=== PATIENT | male | born 2005 | race African-American/Black ===

== ENCOUNTER 2024-07-07 06:27 | Emergency (ER) | payer MEDICAID, OTHER ==
[~2024-07-07] VITALS: Ht 182.9 cm; Wt 72.6 kg
[2024-07-07 06:35] VITALS: BP 113/76; PULSE 50; RESP 14; TEMP 97.8; O2SAT 99
[2024-07-07] MEDS ORDERED: NAPR-746 PO (07:16)
== END 2024-07-07 07:24 | disposition home or self-care (01) ==
LOC: ER 06:27
DX: S29.011A Strain of muscle and tendon of front wall of thorax, initial encounter (principal); Z79.899 Other long term (current) drug therapy; X58.XXXA Exposure to other specified factors, initial encounter; Y93.89 Activity, other specified; Y92.89 Other specified places as the place of occurrence of the external cause; Y99.8 Other external cause status
CPT/HCPCS: 71046

== ENCOUNTER 2025-01-15 04:22 | Emergency (ER) | payer MEDICAID ==
[~2025-01-15] VITALS: Ht 185.4 cm; Wt 70.1 kg
[~2025-01-15 04:22] MED LIST: NAPR-746 PO
--- NOTE | 2025-01-15 04:57 | ED.PDOC ---
Eye-HPI HPI Comments C/C of sore throat x1 day with no relief after cough drops and pain medication. Pt states it feels scratchy, noted swollen tonsils. Denies difficulty breathing, difficulty swallowing, shortness of breath, chest pain, nausea, vomiting, recent travel, or ill known contacts Time Seen by MD: 04:45 Primary Care Provider: NONE Reviewed Notes: Nurses Notes, Medications, Allergies Allergies: Coded Allergies: NO KNOWN ALLERGIES (Unverified , 02/22/11) Home Meds Active Scripts Methylprednisolone (Medrol Dosepak) 4 Mg Bronson, 4 MG PO UD for 6 Days, #21 TAB UAD Prov:MANUEL RANGELK ACTU[employer]IAL SCIENCE PROFESSOR 01/15/25 Amoxicillin & Pot Clavulanate (AUGMENTIN TABLET) 875 Mg Tb, 875 MG PO BID for 10 Days, #20 TAB Prov:CLAIREBACILIO Du [employer]IAL SCIENCE PROFESSOR 01/15/25 Naproxen (Naproxen) 500 Mg Tab, 500 MG PO BID, #30 TAB Prov:JUMA WHITE 07/07/24 Information Source: Patient Past Medical History PAST MEDICAL HISTORY: Denies Surgical History: Denies all surgeries Family History Family History: Reviewed,noncontributory to illness Social History Lives In: Home Constitutional: reports: fever; denies: chills, diaphoresis, fatigue, malaise, sweats, weakness, others EENTM: reports: throat pain, throat swelling; denies: blurred vision, double vi juma, ear bleeding, ear discharge, ear drainage, ear pain, ear ringing, eye pain, eye redness, hearing loss, mouth pain, mouth swelling, nasal discharge, nose bleeding, nose congestion, nose pain, photophobia, tearing, voice changes, others Respiratory: reports: cough; denies: hemoptysis, orthopnea, SOB at rest, shortness of breath, SOB with excertion, stridor, wheezing, others Cardiovascular: denies: chest pain, dizzy spells, diaphoresis, Dyspnea on exertion, edema, irregular heart beat, left arm pain, lightheadedness, palpitations, PND, syncope, others Gastrointestinal: denies: abdomen distended, abdominal pain, blood streaked bowels, constipated, diarrhea, dysphagia, difficulty swallowing, hematemesis, melena, nausea, poor appetite, poor fluid intake, rectal bleeding, rectal pain, vomiting, others Genitourinary: denies: burning, dysuria, flank pain, frequency, hematuria, incontinence, penile discharge, penile sore, pain, testicle pain, testicle swelling, urgency, others Neurological: denies: dizziness, fainting, headache, left sided numbness, left sided weakness, numbness, paresthesia, pre-existing deficit, right sided numbness, right sided weakness, seizure, speech problems, tingling, tremors, weakness, others Musculoskeletal: denies: back pain, gout, joint pain, joint swelling, muscle pain, muscle stiffness, neck pain, others Integumetry: denies: bruises, change in color, change in hair/nails, dryness, laceration, lesions, lumps, rash, wounds, others Allergic/Immunocompromised: denies: Difficulty Healing, Frequent Infections, Hives, Itching, others Hematologic/Lymphatic: denies: anemia, blood clots, easy bleeding, easy bruising, swollen glands, others Endocrine: denies: excessive hunger, excessive sweating, excessive thirst, excessive urination, flushing, intolerance to cold, intolerance to heat, unexplained weight gain, unexplained weight loss, others Psychiatric: denies: anxiety, bipolar disorder, depression, hopeless, panic disorder, schizophrenia, sleepless, suicidal, others Physical Exam General Appearance: No Apparent Distress, Normal HEENT: Pharynx Normal, TMs Normal, Tonsillar Exudate (TONSILS GRADE 4 WITH EXUDATE NO NOTED OBVIOUS PERITONSILLAR ABSCESS. MODERATE AMOUNT ERYTHEMA) Neck: Full Range of Motion, Non-Tender Respiratory: Lungs Clear, No Respiratory Distress, Normal Breath Sounds Cardiovascular: No Edema, No JVD, No Murmur, No Gallop, Normal Peripheral Pulses, Regular Rate/Rhythm Breast Exam: Deferred Gastrointestinal: No Organomegaly, Non Tender, No Pulsatile Mass, Normal Bowel Sounds, Soft Genitalia: Deferred Pelvic: Deferred Rectal: Deferred Extremities: Normal capillary refill, Normal inspection, Normal range of motion, Non-tender, No pedal edema Musculoskeletal : Apperance: Normal Neurologic: Alert, deputy controller II-XII nml as Tested, No Motor Deficits, Normal Affect, Normal Mood, No Sensory Deficits Cerebellar Function: Normal Reflexes: Normal Skin: Dry, Normal Color, Warm Lymphatic: No Adenopathy Was a procedure done? Was a procedure done?: No EENT DIFF Eye: N/A Sore Throat: Peritonsillar Abscess, Peritonsillar Cellulitis, Streptococcal, Viral Pharyngitis, URI X-Ray, Labs, Meds, VS Vital Signs Date Time Temp Pulse Resp B/P (MAP) Pulse Ox O2 Delivery O2 Flow Rate FiO2 01/15/25 05:00 99.6 71 20 126/75 (92) 98 99.6 Current Medications Medications (Trade) Dose Ordered Sig/Edmar Route Start Time Stop Time Status Last Admin Ceftriaxone Sodium (Rocephin) 1,000 mg ONCE ONCE IM 01/15/25 05:00 01/15/25 05:01 DC 01/15/25 05:53 Dexamethasone Sodium Phosphate (Decadron Injection) 10 mg ONCE ONCE IM 01/15/25 05:00 01/15/25 05:01 DC 01/15/25 05:53 X-Ray, Labs, Meds, VS Comment Likely bacterial tonsils grade 4 erythemic with exudate. Patient given Rocephin 1 g IM and Decadron 10 mg IM reports improvement in pain requesting discharge at this time. Script trial of Augmentin twice daily times 10 days along with Medrol Dosepak. Advised to rest increase p.o. fluids with electrolytes. Eating cold popsicles and fluids to help with the pain and swelling. Follow up with your PCP in 2 days. Take medications as prescribed side effects discussed. ER return precautions given patient indicates understanding and agrees with discharge plan of care. Time of 1ST Reevaluation: 04:55 Reevaluation 1ST: Unchanged Time of 2ND Reevaluation: 05:15 Reevaluation 2ND: Improved Patient Education/Counseling: Diagnosis, Treatment, Prognosis, Need For Follow Up Family Education/Counseling: No Family Present Departure 1 Departure Time of Disposition: 05:15 Impression: Primary Impression: Exudative tonsillitis Disposition: 01 HOME / SELF CARE / HOMELESS Condition: Stable e-Prescriptions Methylprednisolone (Medrol Dosepak) 4 Mg Bronson 4 MG PO UD for 6 Days, #21 TAB UAD Prov: BACILIO RANGEL 01/15/25 Amoxicillin & Pot Clavulanate (AUGMENTIN TABLET) 875 Mg Tb 875 MG PO BID for 10 Days, #20 TAB Prov: BACILIO RANGEL 01/15/25 Discharged With: Self Critical Care Note Critical Care Time?: No Stability Stability form required: No CLAIREBACILIO ACTUARIAL SCIENCE PROFESSOR Jan 15, 2025 04:57
[2025-01-15] MEDS ORDERED: METH4PAK PO (05:00)
[2025-01-15] MEDS ORDERED: AUG875T PO (05:00)
[2025-01-15 05:53] VITALS: BP 119/74; PULSE 70; RESP 17; TEMP 98.5; O2SAT 97
[2025-01-15] MEDS: DexAMETHasone SOD PHOS 10MG/1ML VIAL INJ IM ONE (05:53)
[2025-01-15] MEDS: cefTRIAXone SOD 1,000 MG VL IM ONE (05:53)
== END 2025-01-15 06:05 | disposition home or self-care (01) ==
LOC: ER 04:22
DX: J03.90 Acute tonsillitis, unspecified (principal)
CPT/HCPCS: 96372; 99284; J0696; J1100

== ENCOUNTER 2025-01-24 04:50 | Emergency (ER) | payer MEDICAID ==
[~2025-01-24] VITALS: Ht 182.9 cm; Wt 71.5 kg
[~2025-01-24 04:50] MED LIST changes: +AUG875T PO
--- NOTE | 2025-01-24 05:10 | ED.PDOC ---
History of Present Illness HPI Comments 19-year-old male with no reported PMHx or PSHx presents with a chief complaint of rash to ears, arms, hands, chest, and backside. Patient states that onset of symptoms began yesterday morning, but has been worsening since onset. Patient denies any new lotions, foods, cologne, or animals. Patient reports that the rash began on his ears and was idiopathic. Chief Complaint: Rash Time Seen by MD: 05:00 Primary Care Provider: NONE Reviewed Notes: Medications, Allergies Allergies: Coded Allergies: NO KNOWN ALLERGIES (Unverified , 02/22/11) Home Meds Active Scripts Prednisone (Prednisone) 20 Mg Tab, 20 MG PO DAILY for 4 Days, #4 MG Start on 01/25/2025 Prov:SADIA ZAMORA MD 01/24/25 Diphenhydramine Hcl (Benadryl Allergy) 25 Mg Tab, 25 MG PO TIDPRN PRN for 5 Days, #15 TAB Prov:SADIA ZAMORA MD 01/24/25 Amoxicillin & Pot Clavulanate (AUGMENTIN TABLET) 875 Mg Tb, 875 MG PO BID for 10 Days, #20 TAB Prov:BACILIO RANGEL 01/15/25 Naproxen (Naproxen) 500 Mg Tab, 500 MG PO BID, #30 TAB Prov:JUMA WHITE 07/07/24 Discontinued Scripts Methylprednisolone (Medrol Dosepak) 4 Mg Bronson, 4 MG PO UD for 6 Days, #21 TAB UAD Prov:BACILIO RANGEL [facility] 01/15/25 Information Source: Patient Mode of Arrival: Ambulatory Severity: Moderate Timing: Days Duration: Since onset Prehospital treatment: Treatment ([facility]NADRYL) Vital Signs Vital Signs Date Time Temp Pulse Resp B/P (MAP) Pulse Ox O2 Delivery O2 Flow Rate FiO2 01/24/25 06:26 98.1 66 12 123/73 (90) 100 98.1 01/24/25 06:13 Room Air* 0 21 Physical Exam General: Awake, alert and oriented. No acute distress. Skin: Skin in warm, dry and intact. Appropriate color for ethnicity. HEENT: The head is normocephalic and atraumatic. Conjunctivae are clear without exudates or hemorrhage. Sclera is non-icteric. EOM are intact. No signs of nystagmus. Eyelids are normal in appearance without swelling or lesions. Oral mucosa is pink and moist Neck: The neck is supple with normal range of motion. No JVD. Cardiac: Heart rate and rhythm are normal. No murmurs, gallops, or rubs are auscultated. Respiratory: No signs of respiratory distress. Lung sounds are clear in all lobes bilaterally without rales, rhonchi, or wheezes. No stridor. No posterior pharyngeal erythema or edema. Abdominal: Abdomen is soft, non-tender without distention. Bowel sounds are present and normoactive in all four quadrants. Skin: Maculopapular rash over the upper extremities, face, erythema of the ears. Neurological: The patient is awake, alert and oriented to person, place, and time with normal speech. Speech is clear. There is no facial asymmetry. Psychiatric: Appropriate mood and affect. Good judgement and insight. Review of Systems: REVIEW OF SYSTEMS: No fever, no chills, or fatigue HEENT: No sore throat, no earache, no congestion, no neck pain. Cardiac: No chest pain. No palpitations. Lungs: No shortness of breath, no cough. GI: No nausea, no vomiting, no diarrhea, no constipation, no abdominal pain : No dysuria, frequency, or urgency. No hematuria. Musculoskeletal: No joint pain , no joint swelling, no extremity edema. Skin: Positive rash, positive itching. Neuro: No headache, no dizziness, no weakness Past Medical History PAST MEDICAL HISTORY: Denies Surgical History: Denies all surgeries Family History Family History: Reviewed,noncontributory to illness Social History Smoker: Non-Smoker Alcohol: Denies ETOH Use Drugs: Denies Drug Use Lives In: Home Was a procedure done? Was a procedure done?: No Differential Dx Considerations may include: Differential diagnoses considered include but are not limited to Anaphylaxis, Allergic reaction, rash, dermatitis, infection, cellulitis, autoimmune disorder, other X-Ray, Labs, Meds, VS Vital Signs Date Time Temp Pulse Resp B/P (MAP) Pulse Ox O2 Delivery O2 Flow Rate FiO2 01/24/25 06:26 98.1 66 12 123/73 (90) 100 98.1 01/24/25 06:13 16 97 Room Air* 0 21 01/24/25 04:50 98.1 66 12 123/73 (90) 100 98.1 Lab Test 01/24/25 05:45 Range/Units White Blood Count 6.1 4.4-10.8 10^3/uL Red Blood Count 5.13 4.5-5.90 10^6/uL Hemoglobin 15.2 13.5-17.5 g/dL Hematocrit 43.5 41.0-53.0 % Mean Corpuscular Volume 84.9 80.0-100.0 fL Mean Corpuscular Hemoglobin 29.7 28.0-32.0 pg Mean Corpuscular Hemoglobin Concent 34.9 32.0-36.0 g/dL Red Cell Distribution Width 13.3 11.8-14.3 % Platelet Count 258 140-450 10^3/uL Mean Platelet Volume 6.8 L 6.9-10.8 fL Neutrophils (%) (Auto) 42.8 37.0-80.0 % Lymphocytes (%) (Auto) 44.2 10.0-50.0 % Monocytes (%) (Auto) 7.0 0.0-12.0 % Eosinophils (%) (Auto) 5.7 0.0-7.0 % Basophils (%) (Auto) 0.3 0.0-2.0 % Neutrophils # (Auto) 2.6 1.6-8.6 10 ^3/uL Lymphocytes # (Auto) 2.7 0.4-5.4 10 ^3/uL Monocytes # (Auto) 0.4 0-1.3 10 ^3/uL Eosinophils # (Auto) 0.3 0-0.8 10 ^3/uL Basophils # (Auto) 0 0-0.2 10 ^3/uL Nucleated Red Blood Cells 0.7 % Sodium Level 139 136-145 mmol/L Potassium Level 4.0 3.5-5.1 mmol/L Chloride Level 103 98-107 mmol/L Carbon Dioxide Level 30 20-31 mmol/L Anion Gap 6 5-15 Blood Urea Nitrogen 16 9-23 mg/dL Creatinine 0.79 0.700-1.30 mg/dL Glomerular Filtration Rate Calc 130 >90 mL/min BUN/Creatinine Ratio 20.3 H 10.0-20.0 Serum Glucose 87 74-106 mg/dL Calcium Level 9.4 8.7-10.4 mg/dL Current Medications Medications (Trade) Dose Ordered Sig/Edmar Route Start Time Stop Time Status Last Admin Sodium Chloride 1,000 ml @ 1,000 mls/hr Q1H ONCE IV 01/24/25 05:15 01/24/25 06:14 DC 01/24/25 05:18 Dexamethasone Sodium Phosphate (Decadron Injection) 10 mg ONCE ONCE IV 01/24/25 05:30 01/24/25 05:31 DC 01/24/25 05:26 Diphenhydramine HCl (Benadryl Injection) 50 mg ONCE ONCE IV 01/24/25 05:30 01/24/25 05:31 DC 01/24/25 05:29 Famotidine (Pepcid Injection) 20 mg ONCE ONCE IV 01/24/25 05:30 01/24/25 05:31 DC 01/24/25 05:29 Time of 1ST Reevaluation: 05:30 Reevaluation 1ST: Unchanged Patient Education/Counseling: Need For Follow Up Family Education/Counseling: No Family Present Departure 1 Departure Time of Disposition: 05:22 Impression: Primary Impression: Rash Additional Impression: Allergic reaction Disposition: HOME / SELF CARE / HOMELESS Condition: Stable Additional Instructions: ED DISCHARGE INSTRUCTIONS Instructions: Please read all instructions provided in this packet carefully. Although you have been discharged from the Emergency Department, this does not mean that you have a "clean bill of health". No definitive diagnosis for your symptoms has been made today. It is possible that you are in the process of developing a serious illness. This is why you must return to the ED without fail if any new or worsening symptoms (especially if your symptoms include chest pain , trouble breathing, abdominal pain, fever, headache, confusion, trouble seeing, or trouble walking) It is also very important that you see a primary care doctor within the next 1-3 days to follow up. If you are unable to get an appointment, return to the ED for re-evaluation. Allergic Reaction: Care Instructions An allergic reaction is an excessive response from your immune system to a medicine, chemical, food, insect bite, or other substance. A reaction can range from mild to life-threatening. Some people have a mild rash, hives, and itching or stomach cramps. In severe reactions, swelling of your tongue and throat can close up your airway so that you cannot breathe. Follow-up care is a sanderson part of your treatment and safety. Be sure to make and go to all appointments, and call your doctor if you are having problems. It's also a good idea to know your test results and keep a list of the medicines you take. How can you care for yourself at home? If you know what caused your allergic reaction, be sure to avoid it. Your allergy may become more severe each time you have a reaction. Take an [id number] antihistamine, such as cetirizine (Zyrtec) or loratadine (Claritin), to treat mild symptoms. Read and follow directions on the label. Some antihistamines can make you feel sleepy. Do not give antihistamines to a child unless you have checked with your doctor first. Mild symptoms include sneezing or an itchy or runny nose; an itchy mouth; a few hives or mild itching; and mild nausea or stomach discomfort. Do not scratch hives or a rash. Put a cold, moist towel on them or take cool baths to relieve itching. Put ice packs on hives, swelling, or insect stings for 10 to 15 minutes at a time. Put a thin cloth between the ice pack and your skin. Do not take hot baths or showers. They will make the itching worse. Your doctor may prescribe an epinephrine medicine, such as an epinephrine shot or nasal spray, to carry with you in case you have a severe reaction. Learn how to give yourself the medicine and keep it with you at all times. Make sure it is not . Go to the emergency room every time you have a severe reaction, even if you have used your epinephrine medicine and are feeling better. Symptoms can come back after using the medicine. Wear medical alert jewelry that lists your allergies. You can buy this at most [employer]. When should you call for help? Use an epinephrine medicine, such as an epinephrine shot or nasal spray, if: You think you are having a severe allergic reaction. You have symptoms in more than one body area, such as mild nausea and an itchy mouth. After giving an epinephrine medicine, call 911, even if you feel better. Call 911 anytime you think you may need emergency care. For example, call if: You have symptoms of a severe allergic reaction. These may include: Sudden raised, red areas (hives) all over your body. Swelling of the throat, mouth, lips, or tongue. Trouble breathing. Passing out (losing consciousness). Or you may feel very lightheaded or suddenly feel weak, confused, or restless. Severe belly pain, nausea, vomiting, or diarrhea. Call your doctor now or seek immediate medical care if: You have symptoms of an allergic reaction, such as: A rash or hives (raised, red areas on the skin). Itching. Swelling. Mild belly pain or nausea. Watch closely for changes in your health, and be sure to contact your doctor if: You do not get better as expected. Credits for Allergic Reaction: Care Instructions Current as of: July 15, 2024 Author: [employer] Staff Clinical Review Board All [employer] education is reviewed by a team that includes physicians, nurses, advanced practitioners, registered dieticians, and other healthcare professionals. e-Prescriptions Prednisone (Prednisone) 20 Mg Tab 20 MG PO DAILY for 4 Days, #4 MG Start on 01/25/2025 Prov: SADIA ZAMORA MD 01/24/25 Diphenhydramine Hcl (Benadryl Allergy) 25 Mg Tab 25 MG PO TIDPRN PRN for 5 Days, #15 TAB Prov: SADIA ZAMORA MD 01/24/25 Comments Patient well-appearing, nontoxic. Advised prompt follow-up with PCP, return to the ED with any new, worsening or concerning symptoms. Critical Care Note Critical Care Time?: No Stability Stability form required: No Heart Score Heart Score: Heart Score Response (Comments) Value History N/A 0 EKG N/A 0 Age N/A 0 Risk Factors N/A 0 Troponin N/A 0 Total 0 I personally scribed for SADIA ZAMORA MD ([email or web address]) on 01/24/25 at 05:10. Electronically submitted by Da Ernandez ([email or web address]). SADIA ZAMORA MD January 24, 2025 05:10
[2025-01-24] MEDS: DexAMETHasone INJECTION 10 MG in D5W 5% 50 ML IV ONE (05:18)
[2025-01-24] MEDS: SODIUM CHLORIDE 0.9% 1,000 ML IV ONE (05:18)
[2025-01-24] MEDS ORDERED: PRED20TA2 PO (05:24)
[2025-01-24] MEDS ORDERED: DIPH25TA54 PO (05:24)
[2025-01-24] MEDS: DexAMETHasone SOD PHOS 10MG/1ML VIAL INJ IV ONE (05:26)
[2025-01-24] MEDS: FAMOTIDINE (10MG/ML) 2ML VL IV ONE (05:29)
[2025-01-24] MEDS: diphenhdrAMINE HCL 50 MG/1 ML VL IV ONE (05:29)
[2025-01-24 06:13] VITALS: RESP 16; O2SAT 97
[2025-01-24 06:22] LABS: Basophils # (auto) 0 10 ^3/uL (0-0.2); Basophils % (auto) 0.3 % (0.0-2.0); Chloride 103 mmol/L (98-107); Eosinophils # (auto) 0.3 10 ^3/uL (0-0.8); Eosinophils % (auto) 5.7 % (0.0-7.0); Hematocrit 43.5 % (41.0-53.0); Hemoglobin 15.2 g/dL (13.5-17.5); Lymphocytes # (auto) 2.7 10 ^3/uL (0.4-5.4); Lymphocytes % (auto) 44.2 % (10.0-50.0); Mean Corpuscular Hemoglobin 29.7 pg (28.0-32.0); Mean Corpuscular Hgb Conc. 34.9 g/dL (32.0-36.0); Mean Corpuscular Volume 84.9 fL (80.0-100.0); Monocytes # (auto) 0.4 10 ^3/uL (0-1.3); Neutrophils # (auto) 2.6 10 ^3/uL (1.6-8.6); Neutrophils % (auto) 42.8 % (37.0-80.0); Nucleated Red Blood Cells % 0.7 %; Platelet Count (auto) 258 10^3/uL (140-450); Red Blood Cells 5.13 10^6/uL (4.5-5.90); Red Cell Distribution Width 13.3 % (11.8-14.3); Sodium 139 mmol/L (136-145); White Blood Cell 6.1 10^3/uL (4.4-10.8)
[2025-01-24 06:23] LABS: Anion Gap 6 (5-15); Calcium 9.4 mg/dL (8.7-10.4); Carbon Dioxide 30 mmol/L (20-31)
[2025-01-24 06:26] VITALS: BP 123/73; PULSE 66; RESP 12; TEMP 98.1; O2SAT 100
[2025-01-24 06:28] LABS: BUN/Creatinine Ratio 20.3 (10.0-20.0); Blood Urea Nitrogen 16 mg/dL (9-23); Glucose 87 mg/dL (74-106)
[2025-01-24] MEDS ORDERED: FAMOTIDINE (10MG/ML) 2ML VL IV ONE (21:30)
[2025-01-24] MEDS ORDERED: diphenhdrAMINE HCL 50 MG/1 ML VL IV ONE (21:30)
== END 2025-01-24 06:35 | disposition home or self-care (01) ==
LOC: ER 04:50
DX: T78.49XA Other allergy, initial encounter (principal); X58.XXXA Exposure to other specified factors, initial encounter
CPT/HCPCS: 36415; 80048; 96374; 96375; 99284; J1100; J1200; J3490; J7030; J7060

== ENCOUNTER 2025-02-06 04:41 | Emergency (ER) | payer MEDICAID ==
[~2025-02-06] VITALS: Ht 185.4 cm; Wt 74.3 kg
[~2025-02-06 04:41] MED LIST changes: -AUG875T PO; +DIPH25TA54 PO; +PRED20TA2 PO
--- NOTE | 2025-02-06 04:51 | ED.PDOC ---
HPI Allergic reaction HPI Comments PT PRESENTS TO ED W/CC OF ALLERGIC REACTION/ RASH AFTER SHOWERING. PT WAS SEEN IN THE ER FOR ALLERGIC REACTION LAST WEEK, WAS TREATED AND D/C. PT CURRENTLY A&OX4, VSS, RR EVEN AND UNLABORED ON RA. DENIES CHEST PAIN, DIFFICULTY BREATHING, SHORTNESS OF BREATH, THROAT SWELLING OR RECENT TRAVEL Chief Complaint: Allergic Reaction Time Seen by MD: 04:44 Primary Care Provider: NONE Reviewed Notes: Nurses Notes, Medications, Allergies Allergies: Coded Allergies: NO KNOWN ALLERGIES (Unverified , 02/22/11) Home Meds Active Scripts Prednisone (Prednisone) 20 Mg Tab, 20 MG PO DAILY for 4 Days, #4 MG Start on 01/25/2025 Prov:SADIA ZAMORA MD 01/24/25 Diphenhydramine Hcl (Benadryl Allergy) 25 Mg Tab, 25 MG PO TIDPRN PRN for 5 Days, #15 TAB Prov:SADIA ZAMORA MD 01/24/25 Naproxen (Naproxen) 500 Mg Tab, 500 MG PO BID, #30 TAB Prov:JUMA WHITE 07/07/24 Information Source: Patient Past Medical History PAST MEDICAL HISTORY: Denies Surgical History: Denies all surgeries Family History Family History: Reviewed,noncontributory to illness Social History Smoker: Non-Smoker Alcohol: Denies ETOH Use Drugs: Denies Drug Use Lives In: Home Constitutional: denies: chills, diaphoresis, fatigue, fever, malaise, sweats, weakness, others EENTM: denies: blurred vision, double vision, ear bleeding, ear discharge, ear drainage, ear pain, ear ringing, eye pain, eye redness, hearing loss, mouth pain, mouth swelling, nasal discharge, nose bleeding, nose congestion, nose pain, photophobia, tearing, throat pain, throat swelling, voice changes, others Respiratory: denies: cough, hemoptysis, orthopnea, SOB at rest, shortness of breath, SOB with excertion, stridor, wheezing, others Cardiovascular: denies: chest pain, dizzy spells, diaphoresis, Dyspnea on exertion, edema, irregular heart beat, left arm pain, lightheadedness, palpitations, PND, syncope, others Gastrointestinal: denies: abdomen distended, abdominal pain, blood streaked bowels, constipated, diarrhea, dysphagia, difficulty swallowing, hematemesis, melena, nausea, poor appetite, poor fluid intake, rectal bleeding, rectal pain, vomiting, others Genitourinary: denies: burning, dysuria, flank pain, frequency, hematuria, incontinence, penile discharge, penile sore, pain, testicle pain, testicle swelling, urgency, others Neurological: denies: dizziness, fainting, headache, left sided numbness, left sided weakness, numbness, paresthesia, pre-existing deficit, right sided numbness, right sided weakness, seizure, speech problems, tingling, tremors, weakness, others Musculoskeletal: denies: back pain, gout, joint pain, joint swelling, muscle pain, muscle stiffness, neck pain, others Integumetry: reports: rash; denies: bruises, change in color, change in hair/nails, dryness, laceration, lesions, lumps, wounds, others Allergic/Immunocompromised: denies: Difficulty Healing, Frequent Infections, Hives, Itching, others Hematologic/Lymphatic: denies: anemia, blood clots, easy bleeding, easy bruising, swollen glands, others Endocrine: denies: excessive hunger, excessive sweating, excessive thirst, excessive urination, flushing, intolerance to cold, intolerance to heat, unexplained weight gain, unexplained weight loss, others Psychiatric: denies: anxiety, bipolar disorder, depression, hopeless, panic disorder, schizophrenia, sleepless, suicidal, others Physical Exam General Appearance: No Apparent Distress, Normal HEENT: Normal ENT Inspection, Pharynx Normal, TMs Normal Neck: Full Range of Motion, Non-Tender Respiratory: Lungs Clear, No Accessory Muscle Use, No Respiratory Distress, Normal Breath Sounds Cardiovascular: No Edema, No JVD, No Murmur, No Gallop, Normal Peripheral Pulses, Regular Rate/Rhythm Breast Exam: Deferred Gastrointestinal: No Organomegaly, Non Tender, No Pulsatile Mass, Normal Bowel Sounds, Soft Genitalia: Deferred Pelvic: Deferred Rectal: Deferred Extremities: Normal capillary refill, Normal inspection, Normal range of motion, Non-tender, No pedal edema Musculoskeletal : Apperance: Normal Neurologic: Alert, camera engineer II-XII nml as Tested, No Motor Deficits, Normal Affect, Normal Mood, No Sensory Deficits Cerebellar Function: Normal Reflexes: Normal Skin: Dry, Normal Color, Rash (Urticarial rash diffuse no noted excoriations open lesions or drainage), Warm Lymphatic: No Adenopathy Was a procedure done? Was a procedure done?: No Differential diagnosis (all) Differential Diagnosis: Anaphylaxis, Angioedema, Drug Reaction, Urticaria X-Ray, Labs, Meds, VS Vital Signs Date Time Temp Pulse Resp B/P (MAP) Pulse Ox O2 Delivery O2 Flow Rate FiO2 02/06/25 04:51 97.8 66 20 118/56 (76) 98 97.8 Current Medications Medications (Trade) Dose Ordered Sig/[place] Route Start Time Stop Time Status Last Admin Methylprednisolone Sodium Succinate (Solu Medrol) 125 mg ONCE ONCE IM 02/06/25 05:00 02/06/25 05:01 DC 02/06/25 05:03 Famotidine (Pepcid Tablet) 40 mg ONCE ONCE PO 02/06/25 05:00 02/06/25 05:01 DC 02/06/25 05:03 X-Ray, Labs, Meds, VS Comment PATIENT GIVEN SOLU-MEDROL 125 MG IM AND PEPCID 40 MG P.O. REPORTS IMPROVEMENT IN SYMPTOMS REQUESTING DISCHARGE AT THIS TIME. SCRIPT TRIAL OF MEDROL DOSEPAK, PEPCID, AND LORATADINE TIMES 14 DAYS. ADVISED TO REST INCREASE P.O. FLUIDS WITH ELECTROLYTES. TAKE MEDICATIONS PRESCRIBED SIDE EFFECTS DISCUSSED. FOLLOW UP WITH YOUR PCP CONSIDER REFERRAL TO AN ELECTROMECHANICAL ASSEMBLER FOR ALLERGY TESTING. ER RETURN PRECAUTIONS GIVEN PATIENT INDICATES UNDERSTANDING AGREES WITH DISCHARGE PLAN OF CARE. Time of 1ST Reevaluation: 04:49 Reevaluation 1ST: Unchanged Time of 2ND Reevaluation: 05:31 Reevaluation 2ND: Improved Patient Education/Counseling: Diagnosis, Treatment, Prognosis, Need For Follow Up Family Education/Counseling: Diagnosis, Treatment, Prognosis, Need For Follow Up Departure 1 Departure Time of Disposition: 05:29 Impression: Primary Impression: Allergic reaction Qualified Codes: T78.40XA - Allergy, unspecified, initial encounter Disposition: HOME / SELF CARE / HOMELESS Condition: Stable e-Prescriptions Loratadine (Claritin) 10 Mg Tab 1 TAB PO HS for 14 Days, #14 TAB Prov: BACILIO RANGEL RESEARCH HOME ECONOMIST 02/06/25 Famotidine (Pepcid AC) 20 Mg Tab 20 MG PO BID for 6 Days, #12 TAB Prov: CLAIREBACILIO RESEARCH HOME ECONOMIST 02/06/25 Methylprednisolone (Medrol Dosepak) 4 Mg [place] 4 MG PO UD for 6 Days, #21 TAB UAD Prov: BACILIO RANGEL 02/06/25 Discharged With: Relative (Mother) Critical Care Note Critical Care Time?: No Stability Stability form required: BACILIO Mckeon February 06, 2025 04:51
[2025-02-06] MEDS: FAMOTIDINE 20 MG TAB PO ONE (05:03)
[2025-02-06] MEDS: methylPREDNISolone SOD SUCC 125 MG/2 ML VL IM ONE (05:03)
[2025-02-06] MEDS ORDERED: METH4PAK PO (05:31)
[2025-02-06] MEDS ORDERED: LORA-622 PO (05:31)
[2025-02-06] MEDS ORDERED: FAMO-161 PO (05:31)
[2025-02-06 05:41] VITALS: BP 118/56; PULSE 66; RESP 20; TEMP 97.8; O2SAT 98
== END 2025-02-06 05:44 | disposition home or self-care (01) ==
LOC: ER 04:41
DX: T78.40XA Allergy, unspecified, initial encounter (principal); X58.XXXA Exposure to other specified factors, initial encounter
CPT/HCPCS: 96372; 99283; J2919